=== PATIENT | female | born 2000 | race Caucasian/White ===

== ENCOUNTER 2022-09-29 19:53 | Emergency (ER) | payer MEDICAID, OTHER ==
[~2022-09-29] VITALS: Ht 162 cm; Wt 86.0 kg
[2022-09-29 22:10] LABS: BASOPHILS % (AUTO) 0 % (0-10); EOSINOPHILS % (AUTO) 0 % (0-10); HEMATOCRIT 38 % (35-52); HEMOGLOBIN 12.7 g/dL (11.5-16.0); LYMPHOCYTES # (AUTO) 1.1 10^3/uL (1.0-4.0); LYMPHOCYTES % (AUTO) 8 % (12-44); MEAN CORPUSCULAR HEMOGLOBIN 29 pg (25-34); MEAN CORPUSCULAR HGB CONC 34 g/dL (32-36); MEAN CORPUSCULAR VOLUME 87 fL (80-99); MEAN PLATELET VOLUME 9.8 fL (9.0-12.2); MONOCYTES # (AUTO) 1.7 10^3/uL (0.0-1.0); MONOCYTES % (AUTO) 12 % (0-12); NEUTROPHILS # (AUTO) 10.6 10^3/uL (1.8-7.8); NEUTROPHILS % (AUTO) 79 % (42-75); PLATELET COUNT 246 10^3/uL (130-400); WHITE BLOOD COUNT 13.5 10^3/uL (4.3-11.0)
[2022-09-29] MEDS ORDERED: LACTATED RINGERS 1,000 ML IV ONE (22:15)
[2022-09-29] MEDS ORDERED: ACETAMINOPHEN 500 MG TAB (TYLENOL) PO ONE (22:15)
[2022-09-29] MEDS ORDERED: CEFEPIME INJECTION 1,000 MG in NS (IVPB) 50 ML IV ONE (22:15)
[2022-09-29 22:23] LABS: ALANINE AMINOTRANSFERASE 27 U/L (0-55); ALBUMIN 4.3 GM/DL (3.2-4.5); ALKALINE PHOSPHATASE 69 U/L (40-136); AMYLASE 38 U/L (25-125); BILIRUBIN,TOTAL 0.7 MG/DL (0.1-1.0); BUN/CREATININE RATIO 11; CALCIUM 8.7 MG/DL (8.5-10.1); CARBON DIOXIDE 24 MMOL/L (21-32); CHLORIDE 99 MMOL/L (98-107); GFR ESTIMATED 107; GLUCOSE 118 MG/DL (70-105); LIPASE 10 U/L (8-78); MAGNESIUM 1.9 MG/DL (1.6-2.4); POTASSIUM 3.5 MMOL/L (3.6-5.0); SODIUM 135 MMOL/L (135-145); TOTAL PROTEIN 7.9 GM/DL (6.4-8.2)
[2022-09-29 22:48] LABS: BILIRUBIN,URINE 1+ (NEGATIVE); CLARITY,URINE CLEAR; COLOR,URINE RED; GLUCOSE, URINE (UA) NEGATIVE (NEGATIVE); KETONES,URINE 2+ (NEGATIVE); LEUKOCYTE ESTERASE ,URINE TRACE (NEGATIVE); NITRITE,URINE POSITIVE (NEGATIVE); PROTEIN,URINE 3+ (NEGATIVE)
[2022-09-29 22:48] LABS: INR 1.1 (0.8-1.4); PROTHROMBIN TIME PATIENT 14.7 SEC (12.2-14.7)
[2022-09-29 23:15] LABS: BACTERIA,URINE MODERATE /HPF; RBC,URINE TNTC /HPF
[2022-09-29 23:51] LABS: AMPHETAMINE SCREEN, URINE NEGATIVE (NEGATIVE); BARBITURATE SCREEN URINE NEGATIVE (NEGATIVE); BENZODIAZEPINES SCREEN URINE NEGATIVE (NEGATIVE); CANNABINOID SCREEN, URINE NEGATIVE (NEGATIVE); COCAINE SCREEN URINE NEGATIVE (NEGATIVE); METHADONE STAT NEGATIVE (NEGATIVE); OPIATE SCREEN URINE NEGATIVE (NEGATIVE); OXYCODONE STAT NEGATIVE (NEGATIVE); PROPOXYPHENE STAT NEGATIVE (NEGATIVE); TRICYCLIC ANTIDEPRESSANTS SCRE NEGATIVE (NEGATIVE)
[2022-09-30] MEDS ORDERED: LACTATED RINGERS 1,000 ML IV ONE
[2022-09-30] MEDS ORDERED: RX-ONDANSETRON 4 MG ODT (ZOFRAN) PPK #4 PO STA (00:56)
[2022-09-30] MEDS ORDERED: TAMSULOSIN 0.4 MG (FLOMAX) CAP PO SCH (01:00)
[2022-09-30] MEDS ORDERED: LEVO750T PO (01:03)
[2022-09-30] MEDS ORDERED: TMSL.4C PO (01:03)
[2022-09-30] MEDS ORDERED: ONDA4TAB11 PO (01:03)
[2022-09-30] MEDS ORDERED: ACHD5005 PO (01:03)
--- NOTE | 2022-09-30 01:03 | ED General ---
General Chief Complaint: Fever-Adult/Adol Stated Complaint: VAG BLEEDING/LEFT SIDE PAIN/MIGRAINE Nursing Triage Note: Pt presents with c/o fever, headache, L side body aches, primarily L flank radiating to L abdomen. Pt reports nausea and vomiting. She states this all started with her period starting approx 4 days ago. Period was abdnormal. Allergies and Home Medications Allergies Coded Allergies: No Known Drug Allergies (Unverified , 09/29/22) Past Fgmpavq-Dyymvi-Jvykyx Hx Immunizations Up To Date Influenza Vaccine Up-to-Date: No; Not Current Past Medical History Last Menstrual Period: Sep 25, 2022 Physical Exam Vital Signs Vital Signs - First Documented 09/29/22 20:46 Temp 39.5 Pulse 122 Resp 16 B/P (MAP) 118/84 (95) Capillary Refill : Less Than 3 Seconds Height, Weight, BMI Height: '" Weight: lbs. oz. kg; 32.00 BMI Method: Focused Exam Sepsis Stage: Sepsis Possible Source: Genitouriary Lactate Level 09/29/22 21:20: Lactic Acid Level 1.02 Time of Focused Exam: 00:30 Respiratory: Normal Breath Sounds, No Accessory Muscle Use, No Respiratory Distress Cardiovascular: Regular Rate, Rhythm, No Murmur Capillary Refill: Less Than 3 Seconds Skin: normal color, warm/dry Lactic Acid Level Laboratory Tests Test 09/29/22 21:20 Lactic Acid Level 1.02 MMOL/L (0.50-2.00) Within 3hrs of presentation: Admin fluids, Admin ABX, Blood cultures prior to ABX's, Focus exam, Lactate level Progress/Results/Core Measures Suspected Sepsis SIRS Temperature: Pulse: 122 Respiratory Rate: 16 Laboratory Tests 09/29/22 21:20: White Blood Count 13.5H Blood Pressure 118 /84 Mean: 95 09/29/22 21:20: Lactic Acid Level 1.02 Laboratory Tests 09/29/22 21:20: Creatinine 0.80, INR Comment 1.1, Platelet Count 246, Total Bilirubin 0.7 Results/Orders Lab Results Laboratory Tests Test 09/29/22 21:20 09/29/22 22:23 09/29/22 22:56 Range/Units White Blood Count 13.5 H 4.3-11.0 10^3/uL Red Blood Count 4.33 3.80-5.11 10^6/uL Hemoglobin 12.7 11.5-16.0 g/dL Hematocrit 38 35-52 % Mean Corpuscular Volume 87 80-99 fL Mean Corpuscular Hemoglobin 29 25-34 pg Mean Corpuscular Hemoglobin Concent 34 32-36 g/dL Red Cell Distribution Width 13.0 10.0-14.5 % Platelet Count 246 130-400 10^3/uL Mean Platelet Volume 9.8 9.0-12.2 fL Immature Granulocyte % (Auto) 0 % Neutrophils (%) (Auto) 79 H 42-75 % Lymphocytes (%) (Auto) 8 L 12-44 % Monocytes (%) (Auto) 12 0-12 % Eosinophils (%) (Auto) 0 0-10 % Basophils (%) (Auto) 0 0-10 % Neutrophils # (Auto) 10.6 H 1.8-7.8 10^3/uL Lymphocytes # (Auto) 1.1 1.0-4.0 10^3/uL Monocytes # (Auto) 1.7 H 0.0-1.0 10^3/uL Eosinophils # (Auto) 0.0 0.0-0.3 10^3/uL Basophils # (Auto) 0.0 0.0-0.1 10^3/uL Immature Granulocyte # (Auto) 0.1 0.0-0.1 10^3/uL Prothrombin Time 14.7 12.2-14.7 SEC INR Comment 1.1 0.8-1.4 Activated Partial Thromboplast Time 37 H 24-35 SEC Sodium Level 135 135-145 MMOL/L Potassium Level 3.5 L 3.6-5.0 MMOL/L Chloride Level 99 98-107 MMOL/L Carbon Dioxide Level 24 21-32 MMOL/L Anion Gap 12 5-14 MMOL/L Blood Urea Nitrogen 9 7-18 MG/DL Creatinine 0.80 0.60-1.30 MG/DL Estimat Glomerular Filtration Rate 107 BUN/Creatinine Ratio 11 Glucose Level 118 H 70-105 MG/DL Lactic Acid Level 1.02 0.50-2.00 MMOL/L Calcium Level 8.7 8.5-10.1 MG/DL Corrected Calcium 8.5 8.5-10.1 MG/DL Magnesium Level 1.9 1.6-2.4 MG/DL Total Bilirubin 0.7 0.1-1.0 MG/DL Aspartate Amino Transf (AST/SGOT) 24 5-34 U/L Alanine Aminotransferase (ALT/SGPT) 27 0-55 U/L Alkaline Phosphatase 69 40-136 U/L Total Protein 7.9 6.4-8.2 GM/DL Albumin 4.3 3.2-4.5 GM/DL Amylase Level 38 25-125 U/L Lipase 10 8-78 U/L Human Chorionic Gonadotropin, Quant < 5 <5 MIU/ML Monoscreen NEGATIVE NEGATIVE Influenza Type A (RT-PCR) Not Detected Not Detecte Influenza Type B (RT-PCR) Not Detected Not Detecte SARS-CoV-2 RNA (RT-PCR) Not Detected Not Detecte Urine Color RED H Urine Clarity CLEAR Urine pH 6.0 5-9 Urine Specific [place] 1.025 H 1.016-1.022 Urine Protein 3+ H NEGATIVE Urine Glucose (UA) NEGATIVE NEGATIVE Urine Ketones 2+ H NEGATIVE Urine Nitrite POSITIVE H NEGATIVE Urine Bilirubin 1+ H NEGATIVE Urine Urobilinogen 4.0 < = 1.0 MG/DL Urine Leukocyte Esterase TRACE H NEGATIVE Urine RBC (Auto) 3+ H NEGATIVE Urine RBC TNTC H /HPF Urine WBC 5-10 H /HPF Urine Squamous Epithelial Cells 5-10 /HPF Urine Crystals NONE /LPF Urine Bacteria MODERATE H /HPF Urine Casts NONE /LPF Urine Mucus NEGATIVE /LPF Urine Culture Indicated YES Urine Opiates Screen NEGATIVE NEGATIVE Urine Oxycodone Screen NEGATIVE NEGATIVE Urine Methadone Screen NEGATIVE NEGATIVE Urine Propoxyphene Screen NEGATIVE NEGATIVE Urine Barbiturates Screen NEGATIVE NEGATIVE Ur Tricyclic Antidepressants Screen NEGATIVE NEGATIVE Urine Phencyclidine Screen NEGATIVE NEGATIVE Urine Amphetamines Screen NEGATIVE NEGATIVE Urine Methamphetamines Screen NEGATIVE NEGATIVE Urine Benzodiazepines Screen NEGATIVE NEGATIVE Urine Cocaine Screen NEGATIVE NEGATIVE Urine Cannabinoids Screen NEGATIVE NEGATIVE Group A Streptococcus Screen NEGATIVE NEGATIVE My Orders Orders - TANIA TAPIA DO Ed Iv/Invasive Line Start (09/29/22 21:56) Monitor-Rhythm Ecg Trace Only (09/29/22 21:56) Amylase (09/29/22 21:56) Cbc With Automated Diff (09/29/22 21:56) Comprehensive Metabolic Panel (09/29/22 21:56) Drug Screen Stat (Urine) (09/29/22 21:56) Hcg,Quantitative (09/29/22 21:56) Lipase (09/29/22 21:56) Magnesium (09/29/22 21:56) Monotest (09/29/22 21:56) Rapid Strep A Screen (09/29/22 21:56) Ua Culture If Indicated (09/29/22 21:56) Covid 19 Inhouse Test (09/29/22 21:56) Influenza A And B By Pcr (09/29/22 21:56) Isolation Central Supply Req (09/29/22 21:56) Type And Screen (09/29/22 21:56) Acetaminophen Tablet (Tylenol Tablet) (09/29/22 22:15) Blood Culture (09/29/22 22:11) Sputum Culture (09/29/22 22:11) Urine Culture (09/29/22 22:11) Protime With Inr (09/29/22 22:11) Partial Thromboplastin Time (09/29/22 22:11) Ed Iv/Invasive Line Start (09/29/22 22:11) Vital Signs Adult Sepsis Patie Q15M (09/29/22 22:11) O2 (09/29/22 22:11) Remove Rings In Anticipation O (09/29/22 22:11) Lactic Acid Analyzer (09/29/22 22:11) Lactated Ringers (Lr 1000 Ml Iv Solution (09/29/22 22:15) Cefepime Injection (Maxipime Injection) (09/29/22 22:15) Chest 1 View, Ap/Pa Only (09/29/22 22:50) Urine Culture (09/29/22 22:23) Throat Culture Strep A Confirm (09/29/22 22:56) Ed Iv/Invasive Line Start (09/29/22 23:53) Lactated Ringers (Lr 1000 Ml Iv Solution (09/30/22 00:00) Ct Chest/Abdomen/Pelvis Wo (09/30/22 00:01) Tamsulosin Capsule (Flomax Capsule) (09/30/22 01:00) Levofloxacin Tablet (Levaquin Tablet) (09/30/22 01:00) Rx-Hydrocodone/Apap 5-325 Mg (Rx-Vicodin (09/30/22 01:00) Rx-Ondansetron Po (Rx-Zofran Po) (09/30/22 00:56) Medications Given in ED Current Medications Medications Dose Ordered Sig/Edwar Route Start Time Stop Time Status Last Admin Dose Admin Acetaminophen 1,000 mg ONCE ONCE PO 09/29/22 22:15 09/29/22 22:16 DC 09/29/22 22:32 1,000 MG Cefepime HCl 1000 mg/Sodium Chloride 50 ml @ 100 mls/hr ONCE ONCE IV 09/29/22 22:15 09/29/22 22:44 DC 09/29/22 22:32 100 MLS/HR Lactated Ringer's 1,000 ml @ 0 mls/hr Q0M ONCE IV 09/29/22 22:15 09/29/22 22:16 DC 09/29/22 22:32 1,000 MLS/HR Lactated Ringer's 1,000 ml @ 0 mls/hr Q0M ONCE IV 09/30/22 00:00 09/30/22 00:01 DC 09/30/22 00:30 1,000 MLS/HR Vital Signs/I&O 09/29/22 09/29/22 20:46 23:48 Temp 39.5 37.5 Pulse 122 Resp 16 B/P (MAP) 118/84 (95) Capillary Refill : Less Than 3 Seconds Blood Pressure Mean: 95 Departure Impression Primary Impression: Sepsis Additional Impressions: UTI (urinary tract infection) Left ureteral calculus Disposition: HOME, SELF-CARE Condition: Improved Departure-Patient Inst. Decision time for Depature: 00:59 Referrals: RICK LUDWIG APRN (PCP/Family) Primary Care Physician Patient Instructions: Kidney Stone, Adult ED, Sepsis, Adult (DC), Urinary Tract Infection, Adult ED Add. Discharge Instructions: LOTS OF CLEAR LIQUIDS--WATER, BROTH, JELLO, GATORADE TYLENOL 1 GRAM PLUS MOTRIN 800 MG 4 TIMES A DAY FOR PAIN OR FEVER FOLLOW UP WITH UROLOGIST OF CHOICE THIS WEEK FOR FURTHER CARE--THERE ARE UROLOGY SERVICES IN [place], AND AT [facility] IN [place]--CALL IN THE MORNING TO SCHEDULE AN APPOINTMENT RETURN TO ER IF SYMPTOMS WORSEN All discharge instructions reviewed with patient and/or family. Voiced understanding. Scripts Hydrocodone/Acetaminophen (Hydrocodone-Acetamin 5-325 mg) 5 Mg-325 Mg Tablet 1 EACH PO Q4-6 HOURS PRN for PAIN, #20 TAB Prov: TANIA TAPIA DO 09/30/22 Levofloxacin (Levofloxacin) 750 Mg Tablet 750 MG PO DAILY, #7 TAB Prov: TANIA TAPIA DO 09/30/22 Ondansetron (Ondansetron Odt) 4 Mg Tab.rapdis 4 MG PO Q4H for Nausea/Vomiting, #10 TAB Prov: TANIA TAPIA DO 09/30/22 Tamsulosin HCl (Flomax) 0.4 Mg Cap 0.4 MG PO DAILY, #10 CAP Prov: TANIA TAPIA DO 09/30/22 TANIA TAPIA DO September 30, 2022 01:03
[2022-09-30 01:25] VITALS: BP 112/75
--- NOTE | 2022-09-30 14:30 | Diagnostic Imaging Report ---
CHEST 1 VIEW, AP/PA ONLY Indication: Chest pain. Comparison: None available. Findings: No focal airspace disease in the visualized lungs. No pleural effusion or pneumothorax. Normal cardiomediastinal silhouette. Impression: 1. No acute cardiopulmonary process by portable radiography. Dictated by: Dictated on workstation # [id number]
--- NOTE | 2022-09-30 14:55 | Diagnostic Imaging Report ---
PROCEDURE: CT chest, abdomen, and pelvis without contrast. TECHNIQUE: Multiple contiguous axial images were obtained through the chest, abdomen, and pelvis without the use of intravenous contrast. Auto Exposure Controls were utilized during the CT exam to meet ALARA standards for radiation dose reduction. INDICATION: Fever, cough, chest pain and abdominal pain. COMPARISON: No prior studies are available for comparison. CT CHEST: No axillary lymphadenopathy is identified. No definite mediastinal or hilar lymphadenopathy is detected. No pericardial or pleural fluid is identified. No pulmonary infiltrates, nodules or masses are detected. CT ABDOMEN AND PELVIS: The liver and gallbladder are unremarkable. The pancreas and spleen are unremarkable. No adrenal mass is detected. Right kidney is unremarkable. There is mild enlargement of the left kidney. There is mild left-sided perinephric and periureteral inflammatory stranding. The left ureter does appear to be dilated. The distal ureter is difficult to visualize however there is an approximately 2 to 3 mm calculus in the left hemipelvis which may be within the distal left ureter. No bladder calculi are seen. Aorta is unremarkable. Uterus is unremarkable. Bowel loops are non-obstructed. There is no ascites. IMPRESSION: 1. Left-sided hydro-ureteral nephrosis with perinephric and periureteral inflammatory stranding. There is a 2 to 3 mm left pelvic calculus which may lie within the distal left ureter. 2. No other significant abnormality is detected. 3. Unremarkable CT of the chest. Dictated by: Dictated on workstation # [id number]
== END 2022-09-30 01:25 | disposition home or self-care (01) ==
LOC: ER 19:57
DX: A41.9 Sepsis, unspecified organism (principal); N39.0 Urinary tract infection, site not specified; N13.2 Hydronephrosis with renal and ureteral calculous obstruction; Z20.822 Contact with and (suspected) exposure to COVID-19; Z28.310 Unvaccinated for COVID-19
CPT/HCPCS: 36415; 71045; 71250; 74176; 80053; 80306; 81000; 82150; 83605; 83690; 83735; 84702; 85025; 85610; 85730; 86308; 87040; 87077; 87088; 87186; 87430; 87636